=== PATIENT | male | born 1950 | race Caucasian/White ===

== ENCOUNTER 2019-01-31 12:40 | Emergency (ER) | payer MEDICARE, OTHER ==
[2019-01-31] MEDS ORDERED: ONDANSETRON 4 MG/2 ML VIAL IVP STA ×2 (12:57→14:55)
[2019-01-31] MEDS ORDERED: HYDROmorphone 1 MG/ML CARPUJECT IVP STA (12:57)
[2019-01-31] MEDS ORDERED: KETOROLAC 30 MG/ML VIAL IVP STA (12:57)
--- NOTE | 2019-01-31 12:58 | ED Physician Documentation ---
PD HPI ABD PAIN - Stated complaint Stated Complaint: LT SIDE BACK PAIN - Chief complaint Chief Complaint: Abd Pain - History obtained from History obtained from: Patient - History of Present Illness Timing - onset: Other (68-year-old gentleman with history of conservatively managed renal colic in the past presents with 3 days of acute onset waxing and waning left flank pain radiating to the left lower quadrant. He has chronic urinary frequency from prostate issues which has not changed. He also has chronic hematuria which is not worse than normal. He denies fevers or chills. He is nauseous because the pain but has not vomited.) Review of Systems Ten Systems: 10 systems reviewed and negative Constitutional: denies: Fever, Chills Cardiac: denies: Chest pain / pressure, Palpitations Respiratory: denies: Dyspnea, Cough PD PAST MEDICAL HISTORY - Past Medical History Past Medical History: Yes Cardiovascular: Coronary artery disease Endocrine/Autoimmune: Type 2 diabetes : Benign prostate hypertrophy - Present Medications Home Medications: Ambulatory Orders Medication Instructions Recorded Confirmed Ondansetron Odt [Zofran] 4 mg TL Q6H PRN #10 tablet 01/31/19 Oxycodone HCl/Acetaminophen 1 - 2 each PO Q6H PRN #20 tablet 01/31/19 [Percocet 5-325 mg Tablet] Tamsulosin [Flomax] 0.4 mg PO DAILY #14 capsule 01/31/19 - Allergies Allergies/Adverse Reactions: Allergies Allergy/AdvReac Type Severity Reaction Status Date / Time metoclopramide [From Reglan] Allergy Emesis Verified 01/31/19 12:45 Penicillins Allergy Anaphylaxis Verified 01/31/19 12:45 Sulfa (Sulfonamide Allergy Dizziness Verified 01/31/19 12:45 Antibiotics) - Living Situation Living Situation: reports: With family (in [place]) - Social History Does the pt smoke?: No Does the pt have substance abuse?: No - Family History Family history: reports: Non contributory PD ED PE NORMAL - Vitals Vital signs reviewed: Yes - General General: Alert and oriented X 3, No acute distress - HEENT HEENT: PERRL, EOMI - Neck Neck: Supple, no meningeal sign, No bony TTP - Cardiac Cardiac: RRR, No murmur - Respiratory Respiratory: No respiratory distress, Clear bilaterally - Abdomen Abdomen: Normal bowel sounds, Soft, Non tender - Back Back: No CVA TTP, No spinal TTP - Derm Derm: Normal color, Warm and dry - Extremities Extremities: No edema, No calf tenderness / cord - Neuro Neuro: Alert and oriented X 3, Normal speech - Psych Psych: Normal mood, Normal affect Results - Vitals Vitals: Vital Signs - 24 hr 01/31/19 01/31/19 12:45 13:56 Temperature 36.5 C Heart Rate 63 63 Respiratory 16 15 Rate Blood Pressure 130/77 108/71 O2 Saturation 100 95 Oxygen O2 Source Room air - Labs Labs: Laboratory Tests 01/31/19 01/31/19 01/31/19 12:52 13:12 13:12 WBC 8.0 RBC 5.31 Hgb 15.5 Hct 45.8 MCV 86.3 MCH 29.1 MCHC 33.7 RDW 15.4 H Plt Count 165 MPV 8.1 Neut # (Auto) 6.3 Lymph # (Auto) 0.8 L [place] # (Auto) 0.8 Eos # (Auto) 0.1 Baso # (Auto) 0.0 Absolute Nucleated RBC 0.00 Nucleated RBC % 0.0 Sodium 138 Potassium 3.4 L Chloride 99 L Carbon Dioxide 26 Anion Gap 13.0 BUN 36 H Creatinine 2.3 H Estimated GFR (MDRD) 28 L Glucose 109 H Calcium 9.0 Urine Color YELLOW Urine Clarity CLEAR Urine pH 6.0 Ur Specific [place] 1.020 Urine Protein NEGATIVE Urine Glucose (UA) NEGATIVE Urine Ketones NEGATIVE Urine Occult Blood NEGATIVE Urine Nitrite NEGATIVE Urine Bilirubin NEGATIVE Urine Urobilinogen 0.2 (NORMAL) Ur Leukocyte Esterase NEGATIVE Ur Microscopic Review NOT INDICATED Urine Culture Comments NOT INDICATED - Rads (name of study) Ct KUB Radiology: EMP read contemporaneously (1.3 CM UPJ stone on left with hydro, iliac and AAA (already known to pt)) PD MEDICAL DECISION MAKING - ED course ED course: 68-year-old gentleman with symptoms likely referrable to left renal colic proven on CT. The stone is quite large and his renal function is not good. He does have a history of renal insufficiency, he thinks his baseline his creatinine is about 1.2. His pain was much better after single dose of pain medications [place] I spoke with Dr. Irwin Mercado, urology in [place]. He felt like it would be a risk for him to try to go home back to [place] especially by driving without having it out although if he did have it out here he would have to stay in the area longer. He was happy to see him in the clinic. There is no need for urgent transfer. Departure - Departure Disposition: Home, Self Care Clinical Impression: Renal colic on left side Condition: Good Record reviewed to determine appropriate education?: Yes Instructions: ED Stone Renal W Colic Prescriptions: Ondansetron Odt [Zofran] 4 mg TL Q6H PRN #10 tablet PRN Reason: Nausea / Vomiting Oxycodone HCl/Acetaminophen [Percocet 5-325 mg Tablet] 1 - 2 each PO Q6H PRN #20 tablet PRN Reason: pain Tamsulosin [Flomax] 0.4 mg PO DAILY #14 capsule Comments: Call Dr. Mercado's office today or tomorrow to arrange an appointment with him for consideration to have the stone out before you go back to [place], his phone number is [phone]. When you go take the copy of the CAT scan and your labs with you.
[2019-01-31 13:22] LABS: BASOPHILS % (AUTO) 0.5 %; EOSINOPHILS # (AUTO) 0.1 10^3/uL (0.0-0.7); HGB - HEMOGLOBIN 15.5 g/dL (14.0-18.0); LYMPHOCYTES # (AUTO) 0.8 10^3/uL (1.5-3.5); LYMPHOCYTES % (AUTO) 9.9 %; MEAN CORPUSCULAR HEMOGLOBIN 29.1 pg (27.0-31.0); MEAN CORPUSCULAR HGB CONC 33.7 g/dL (32.0-36.0); MEAN CORPUSCULAR VOLUME 86.3 fL (80.0-94.0); MEAN PLATELET VOLUME 8.1 fL (7.4-11.4); MONOCYTES # (AUTO) 0.8 10^3/uL (0.0-1.0); MONOCYTES % (AUTO) 9.9 %; NEUTROPHILS # (AUTO) 6.3 10^3/uL (1.5-6.6); NEUTROPHILS % (AUTO) 78.7 %; PLT - PLATELET COUNT 165 10^3/uL (130-450); RED BLOOD COUNT 5.31 10^6/uL (4.70-6.10); RED CELL DISTRIBUTION WIDTH 15.4 % (12.0-15.0)
[2019-01-31 13:28] LABS: BILIRUBIN,URINE NEGATIVE (NEGATIVE); GLUCOSE, URINE (UA) NEGATIVE (NEGATIVE); KETONES,URINE (UA) NEGATIVE (NEGATIVE); LEUKOCYTE ESTERASE, URINE NEGATIVE (NEGATIVE); NITRITE,URINE NEGATIVE (NEGATIVE); OCCULT BLOOD,URINE NEGATIVE (NEGATIVE); PROTEIN,URINE NEGATIVE (NEGATIVE); UROBILINOGEN,URINE 0.2 (NORMAL) E.U./dL (NORMAL)
[2019-01-31 13:28] LABS: CREATININE 2.3 mg/dL (0.6-1.2)
[2019-01-31 13:29] LABS: CLARITY,URINE CLEAR (CLEAR)
[2019-01-31] MEDS ORDERED: SODIUM CHLORIDE 0.9% 1,000 ML IV ONE (13:34)
--- NOTE | 2019-01-31 14:00 | CT Report ---
Reason: L flank pain Procedure Date: 01/31/2019 Accession Number: [id number] / [id number] Procedure: CT - Abdomen/Pelvis WO CPT Code: FULL RESULT: EXAM: CT ABDOMEN AND PELVIS (CT KUB) EXAM DATE: 01/31/2019 01:36 PM. CLINICAL HISTORY: Left flank pain. COMPARISONS: None. TECHNIQUE: Routine axial helical CT imaging was performed through the abdomen and pelvis without IV contrast. Reconstructions: Coronal and sagittal. In accordance with CT protocol optimization, one or more of the following dose reduction techniques were utilized for this exam: automated exposure control, adjustment of mA and/or KV based on patient size, or use of iterative reconstructive technique. FINDINGS: Lung Bases: Bilateral dependent changes, left greater than right. Right Kidney/Ureter: Exophytic renal lesion which is not characterized as simple cysts, indeterminate. No obstruction or calculi. Left Kidney/Ureter: 1.3 cm obstructing left ureteropelvic junction calculus with at least moderate hydronephrosis. Renal cysts. Other Solid Organs: Noncontrast images of the solid organs are grossly unremarkable. Gallbladder/Bile Ducts: Status post cholecystectomy. Peritoneal Cavity: Moderate hiatal hernia with evidence of prior gastric surgery, likely fundoplication. No free fluid, free air or noé adenopathy. No bowel obstruction. Pelvic Organs: No bladder stones or wall thickening. Noncontrast images of the visualized pelvic organs are unremarkable. Vasculature: Infrarenal abdominal aortic aneurysm with maximum caliber of 3.6 cm as measured on image 70 of series 3 as well as right common iliac artery aneurysm measuring up to 3.5 x 3.3 cm as seen on image 110 of series 3. Other: None. IMPRESSION: Obstructing urinary calculus at the left ureteropelvic junction with at least moderate upstream hydronephrosis. Abdominal aortic as well as iliac aneurysms as described. CRITICAL RESULT: The findings were discussed with Dr. Aparicio on 01/31/2019 at 1:58 PM. [facility]
[2019-01-31 15:02] VITALS: BP 127/75
== END 2019-01-31 15:03 | disposition home or self-care (01) ==
LOC: ED 12:40
DX: N13.2 Hydronephrosis with renal and ureteral calculous obstruction (principal); R35.0 Frequency of micturition; E11.9 Type 2 diabetes mellitus without complications; N40.1 Benign prostatic hyperplasia with lower urinary tract symptoms
CPT/HCPCS: 36415; 74176; 80048; 81003; 85025; 96374; 96376; 99283; J1170; 81001; 87086